=== PATIENT | female | born 1990 | race Caucasian/White ===

== ENCOUNTER 2019-01-26 06:44 | Day surgery (SDC) | payer MEDICAID ==
[2019-01-26] MEDS ORDERED: WATER FOR IRRIG STERILE IR ONE (08:01)
[2019-01-26] MEDS: NACL 0.9% 1000 ML 1,000 ML IV SCH ×2 (09:25→09:35)
[2019-01-26] MEDS ORDERED: VERSED ONE (10:07)
[2019-01-26] MEDS ORDERED: DIPRIVAN 10 MG/ML IV ONE (10:07)
[2019-01-26 13:21] VITALS: BP 106/65
== END 2019-01-26 06:45 | disposition home or self-care (01) ==
LOC: GIO 06:44
PROVIDERS: ATTEND Specialist
DX: K21.9 Gastro-esophageal reflux disease without esophagitis (principal); K30 Functional dyspepsia; K44.9 Diaphragmatic hernia without obstruction or gangrene; E66.01 Morbid (severe) obesity due to excess calories; G47.30 Sleep apnea, unspecified; Z79.899 Other long term (current) drug therapy; Z79.84 Long term (current) use of oral hypoglycemic drugs; Z68.41 Body mass index [BMI] 40.0-44.9, adult; Z88.8 Allergy status to other drugs, medicaments and biological substances
CPT/HCPCS: 43235; 81025; 82962; J2250; J2704; J7030

== ENCOUNTER 2019-02-02 05:53 | Observation (INO) | payer MEDICAID ==
[2019-02-02] MEDS ORDERED: MYLICON PO PRN (05:55)
[2019-02-02] MEDS ORDERED: NORCO PO PRN (05:55)
[2019-02-02] MEDS ORDERED: ZOFRAN IV PRN (05:55)
[2019-02-02] MEDS ORDERED: MORPHINE IV PRN (05:55)
[2019-02-02] MEDS ORDERED: APRESOLINE IV PRN (05:55)
[2019-02-02] MEDS ORDERED: TRANSDERM-SCOP TD SCH (06:00)
[2019-02-02] MEDS ORDERED: ANCEF/STERILE WATER 2 GM/20 ML 2 GM/20 ML SYRINGE IV NR (06:00)
[2019-02-02] MEDS ORDERED: LOVENOX SUB-Q NR ×2 (06:00→06:30)
[2019-02-02] MEDS ORDERED: FLAGYL 500 MG/100 ML 500 MG/100 ML BAG IV NR (06:00)
[2019-02-02] MEDS ORDERED: NACL BACTERIOSTATIC INFILTRATI ONE (06:47)
[2019-02-02] MEDS: LACTATED RINGERS 1,000 ML IV SCH ×2 (07:00→12:09)
[2019-02-02] MEDS ORDERED: MARCAINE-EPI 0.5%-1:200,000 INFILTRATI ONE ×2 (07:11→08:26)
[2019-02-02] MEDS ORDERED: XYLOCAINE 1% 20 mL ONE (07:11)
[2019-02-02] MEDS ORDERED: ZEMURON IV ONE (07:30)
[2019-02-02] MEDS ORDERED: SUBLIMAZE ONE (07:30)
[2019-02-02] MEDS ORDERED: QUELICIN ONE (07:30)
[2019-02-02] MEDS ORDERED: DIPRIVAN 10 MG/ML IV ONE ×2 (07:30→07:57)
[2019-02-02] MEDS ORDERED: DECADRON ONE (07:30)
[2019-02-02] MEDS ORDERED: ZOFRAN ONE (07:30)
[2019-02-02] MEDS ORDERED: VERSED IV NR (08:00)
[2019-02-02] MEDS ORDERED: XYLOCAINE 1% 20 mL INFILTRATI ONE (08:26)
[2019-02-02] MEDS ORDERED: ROBINUL ONE ×2 (08:43→09:34)
[2019-02-02] MEDS ORDERED: BLOXIVERZ ONE (08:43)
[2019-02-02] MEDS ORDERED: SUBLIMAZE IV PRN (09:15)
--- NOTE | 2019-02-02 09:17 | Anesthesia Day of Surgery ---
Anesthesia Day of Surgery - Day of Surgery Patient Examined: Yes Patient H&P Reviewed: Yes Patient is NPO: Yes Beta Blockers: Yes Cardiac Clearance: Yes
--- NOTE | 2019-02-02 09:17 | Anesthesia Consultation ---
Anesthesia Consult and Med Hx Date of service: 02/02/19 - Airway Anesthetic Teeth Evaluation: Good ROM Head & Neck: Adequate Mental/Hyoid Distance: Adequate Mallampati Class: Class III Intubation Access Assessment: Possibly Difficult - Pulmonary Exam CTA: Yes - Cardiac Exam Cardiac Exam: RRR - Pre-Operative Health Status ASA Pre-Surgery Classification: ASA3 Proposed Anesthetic Plan: General - Pulmonary Hx Smoking: No Hx Asthma: Yes SOB: Yes (RESCUE INHALER PRN) Hx Sleep Apnea: Yes - Cardiovascular System Hx Hypertension: Yes Hx Cardia Arrhythmia: Yes (tachycardia 2/2 POTS syndrome; took metoprolol this morning) - Central Nervous System CVA: No Hx Back Pain: Yes Hx Psychiatric Problems: Yes (anxiety) - Gastrointestinal Hx Gastroesophageal Reflux Disease: Yes (controlled) - Endocrine Hx Renal Disease: No Hx Liver Disease: No Hx Insulin Dependent Diabetes: No Hx Non-Insulin Dependent Diabetes: No Hx Thyroid Disease: No - Other Systems Hx Obesity: Yes (BMI 44)
[2019-02-02] MEDS ORDERED: DILAUDID ONE ×2 (09:41→10:17)
[2019-02-02] MEDS ORDERED: COZAAR PO SCH (10:00)
[2019-02-02] MEDS ORDERED: PROTONIX PO SCH (10:00)
[2019-02-02] MEDS ORDERED: HCTZ PO SCH (10:00)
[2019-02-02] MEDS ORDERED: LACTATED RINGERS 1,000 ML ONE (10:17)
[2019-02-02] MEDS: DILAUDID IV PRN ×3 (10:17→20:50)
[2019-02-02] MEDS ORDERED: MYLICON ONE (10:59)
--- NOTE | 2019-02-02 12:00 | Post Anesthesia Evaluation ---
- Post Anesthesia Evaluation Patient Participated: Yes Airway Patent: Yes Stable Respiratory Function: Yes Nausea/Vomiting: No Temp > 96.8F: Yes Pain Manageable: Yes Adequeate Hydration: Yes Anesthesia Complications: No
--- NOTE | 2019-02-02 12:41 | Operative Report ---
SURGEON: Mehul Eduardo MD CLINICAL LAB ASSISTANT: Jeet Myers MD; Cady Penaloza MD PREOPERATIVE DIAGNOSIS: Morbid obesity. POSTOPERATIVE DIAGNOSES: Morbid obesity. OPERATION: 1. Laparoscopic sleeve gastrectomy. 2. Laparoscopic hiatal hernia repair. ANESTHESIA: General endotracheal anesthesia. COMPLICATIONS: None. BLEEDIN mL SPECIMENS: Gastric remnant. INDICATIONS: The patient is a 28-year-old female with a history of morbid obesity. She has undergone preoperative bariatric workup and presents for her planned operation. The risks, complications and alternatives have been explained to the patient and informed consent was obtained: DESCRIPTION OF PROCEDURE: The patient was brought to the operating suite where she was placed in the supine position and underwent general endotracheal intubation. She received preoperative antibiotics and DVT prophylaxis and then she was prepped and draped in the usual sterile fashion. A timeout was called to ensure proper patient, indication and location. Local analgesia was injected around the umbilical region and then a small stab incision was made at the base of the umbilicus with insertion of a Veress needle. Insufflation pressures were achieved to 18 mmHg. The incision was then widened and a 15 mm trocar was placed. On Intra-abdominal view, there was no intra-abdominal injury. Additional 5 mm ports were placed in the right lateral subxiphoid and left lateral quadrants. An omental adhesion was lysed near the falciform ligament. A liver retractor was then placed and the patient was repositioned in steep reverse Trendelenburg. A hiatal dissection was first performed revealing a small hiatal hernia. The angle of His was dissected free. In dissecting the hiatal hernia, we did get into slight bleeding from a branching vessel. This was controlled with electrocautery and pressure from the gauze pad. After hemostasis, the greater curvature of the stomach was then from the gastrocolic ligament using a LigaSure device. The stomach was fully mobilized including the short gastrics and continuing about 6 cm from the pylorus. After this, Anesthesia placed a 40-Armenian bougie for calibration and a sleeve gastrectomy was then performed utilizing several staple loads. Insufflation pressures were decreased and the staple line was cauterized after each fire load. After this, an anterior cruroplasty was then done with 0 Surgidac suture in a U-stitch fashion and the hiatus was hemostatic. The gastric remnant was removed from the umbilical region using a grasper and then the fascia was closed with a #1 PDS and a Sage-Janelle. After this, the air was desufflated. The ports were all removed. Additional local was injected into all the wounds and the incisions were closed with 4-0 Monocryl. Sterile bandage was placed over top. The patient tolerated the procedure well with no immediate complications and was transferred to the PACU in stable condition. Counts were correct. FINDINGS: Small hiatal hernia, mild bleeding at the hiatus with dissection. JOB# [id number] DRAGAN/NITHIN MATTSON
[2019-02-02] MEDS: BENTYL PO SCH ×2 (14:38→18:38)
[2019-02-02] MEDS: REGLAN IV PRN (16:46)
[2019-02-02] MEDS ORDERED: LOPRESSOR PO SCH (22:00)
[2019-02-03] MEDS: LACTATED RINGERS 1,000 ML IV SCH (00:57)
[2019-02-03] MEDS: DILAUDID IV PRN (01:03)
[2019-02-03] MEDS: REGLAN IV PRN (01:04)
[2019-02-03] MEDS: BENTYL PO SCH (02:04)
[2019-02-03 05:07] LABS: Basophils % (Auto) 0.2 % (0.0-1.8); Eosinophils % (Auto) 0.3 % (0.0-4.3); Hematocrit 35.6 % (30.3-42.9); Lymphocytes % (Auto) 21.4 % (13.4-35.0); Mean Corpuscular HGB Conc 34 % (30-34); Mean Corpuscular Volume 81 fl (79-97); Monocytes # (Auto) 0.5 K/mm3 (0.0-0.8); Monocytes % (Auto) 5.8 % (0.0-7.3); Platelet Count 328 K/mm3 (140-440); Red Blood Count 4.37 M/mm3 (3.65-5.03)
[2019-02-03 05:25] LABS: BUN/Creatinine Ratio 12; Blood Urea Nitrogen 6 mg/dL (7-17); Hemolysis Index 0
--- NOTE | 2019-02-03 07:01 | Discharge Summary ---
Providers - Providers Date of Admission: 02/02/19 05:55 Date of discharge: 02/03/19 Attending physician: BOAZ EDUARDO Primary care physician: LOKESH CHAVEZ Hospitalization Reason for admission: postop Condition: Good Procedures: 02/02/19: Laparoscopic sleeve gastrectomy Hospital course: 28F admitted after her operation for routine postop care. She was managed on the general surgical floor. Patient tolerated CLD, ambulated, and was dc home POD1. Disposition: DC-01 TO HOME OR SELFCARE Core Measure Documentation - Palliative Care Palliative Care/ Comfort Measures: Not Applicable - Core Measures Any of the following diagnoses?: none - VTE Discharge Requirements Deep Vein Thrombosis/Pulmonary Embolism Present on Admission: No - Acute [place] Discharge Requirements Aspirin at discharge: No Reason for no aspirin on DC: Surgical contraindication - Heart Failure Discharge Requirements TAMY/ARB for LVSD if EF <40%: Not Applicable - Stroke Discharge Requirements Statin for LDL = or >70 mg/dl on DC: Not Applicable Exam - Physical Exam Narrative exam: Gen: AAO, NAD Heart: RRR Lungs: CTAB Abd: MO, soft, ND, NT. Bandages c/d/i. - Constitutional Vitals: Temp Pulse Resp BP Pulse Ox 98.8 F 72 20 150/91 94 02/03/19 05:17 02/03/19 05:17 02/03/19 05:17 02/03/19 05:17 02/03/19 05:17 Plan Diet: clear liquids Wound: keep clean and dry Special Instructions: no heavy lifting Additional Instructions: Esvin Eduardo as scheduled Follow up with: LOKESH CHAVEZ MD [Primary Care Provider] - 7 Days
[2019-02-03 07:57] VITALS: BP 116/68
[2019-02-03] MEDS ORDERED: LOVENOX SUB-Q SCH (10:00)
[2019-02-03] MEDS ORDERED: VERSED ONE (14:11)
[2019-02-03] MEDS ORDERED: SUBLIMAZE ONE (14:11)
== END 2019-02-03 09:30 | disposition home or self-care (01) ==
LOC: OR 05:53 → 3A 05:55 → 3B-SURG 10:39
PROVIDERS: ADMIT Specialist; ATTEND Specialist
DX: E66.01 Morbid (severe) obesity due to excess calories (principal); G47.30 Sleep apnea, unspecified; E28.2 Polycystic ovarian syndrome; K21.9 Gastro-esophageal reflux disease without esophagitis; K58.9 Irritable bowel syndrome, unspecified; E11.9 Type 2 diabetes mellitus without complications; R06.02 Shortness of breath; Z90.49 Acquired absence of other specified parts of digestive tract
CPT/HCPCS: 36415; 43282; 43775; 80048; 81025; 82962; 85025; 88307; 96372; 96374; 96375; 96376; G0378; J0330; J0690; J1170; J1650; J2250; J2405; J2704; J2710; J2765; J3010; J7120; J1100